=== PATIENT | male | born 1950 | race Caucasian/White ===

== ENCOUNTER 2016-08-17 05:28 | Observation (INO) | payer BC ==
--- NOTE | ~2016-08-17 | HP ---
History And Physical [id number] [facility]. [address] NAME: JOSE YARBROUGH JR : 54 STATUS : ADM Emilio PAT#: [id number] AGE: 65 ADM/REG DATE : 08/17/16 MR#: [id number] REPORT SERV DATE: 08/17/16 DICTATED BY: HEIDY FULTON DATE: 08/17/16 REPORT STATUS : Draft TRANSCRIBED BY: MODSundar DATE: 08/17/16 DATE OF ADMISSION: 08/17/2016 PIN INSERTER: Americo Lee MD CHIEF COMPLAINT: Chest pain and nausea with profound diaphoresis similar to previous. HISTORY OF PRESENT ILLNESS: A very pleasant 65-year-old white male with known history of CAD, multiple stents, most recently 06/2008 POBA for ISR to LAD, at which time, his stents to his RCA were widely patent. The patient states that on 08/16 while in bed for the night he became nauseated. He reports some nausea and vomiting. This morning around 0230, he awoke profoundly diaphoretic and nauseated and vomiting with some left-sided chest pain that did not radiate elsewhere. He reports associated nausea, diaphoresis, and dizziness. No shortness of breath or belching. At its most intense, he rated the chest pain an 8/10. At time of interview in the [facility], he rates it a 6/10. He states his symptoms were improved with nitroglycerin taken at home and provided by EMS, but his chest pain has returned. The patient denied reports a personal history of one heart attack. Denies history of stroke, DVT, or pulmonary embolus. The patient denies any recent fever or chills. No palpitations. No syncopal episodes. Denies PND or orthopnea. PAST MEDICAL HISTORY: 1. CAD. a. Multiple stents. b. 06/2008 POBA for ISR to LAD with patent stents to RCA at that time. 2. Dyslipidemia. 3. Denies hypertension and diabetes. 4. GERD. 5. Chronic back pain. 6. ED, most recent Cialis use, 08/16 a.m. 7. Former tobacco abuse. 8. Depression. SURGICAL HISTORY: 1. Hernia repair. 2. Vasectomy. 3. Right shoulder replacement. 4. Partial gastrectomy. SOCIAL HISTORY: He is with one child. 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 Quit smoking five years ago. Denies alcohol or illicits. FAMILY HISTORY: No embolic events reported in first-degree relatives at an early age. History And Physical [address] [place]. [address] NAME: JOSE YARBROUGH JR : 54 STATUS : ADM Emilio PAT#: [id number] AGE: 65 ADM/REG DATE : 08/17/16 MR#: [id number] REPORT SERV DATE: 08/17/16 DICTATED BY: HEIDY FULTON DATE: 08/17/16 REPORT STATUS : Draft TRANSCRIBED BY: MODSundar DATE: 08/17/16 REVIEW OF SYSTEMS: A 14-point review of systems performed, significant for HPI including ecchymosis noted on bilateral forearms. He states he has been moving tree limbs from a fallen tree on his garage the last few days. Otherwise, complete review of systems obtained and negative. ALLERGIES: NO KNOWN DRUG ALLERGIES. HOME MEDICINES: 1. Baclofen 20 mg three times daily p.r.n., half to one tab. 2. Wellbutrin 150 mg twice daily. 3. No longer takes Celebrex. 4. Plavix 75 mg daily. 5. CoQ10 200 mg daily. 6. Stool softener daily. 7. Lexapro 20 mg daily. 8. Zetia 10 mg daily. 9. Tavia p.r.n. 10.Mobic 15 mg daily. 11.Fish oil 1200 mg twice daily. 12.Simvastatin 40 mg nightly. 13.Cialis 5 mg daily, most recently 08/16 a.m. 14.Valtrex 500 mg daily. 15.Geodon 60 mg daily. PHYSICAL EXAMINATION: VITAL SIGNS: Bilateral blood pressures on arrival, right 155/84, left 153/86; pulse 68; respirations 18; temperature 97.7; O2 saturation 97% on room air; height 5 feet 11 inches; weight 178 pounds; BMI 24.8. GENERAL: Cooperative, in no apparent distress. HEENT: Pupils 2 mm, sclera nonicteric. Nares patent. Moist mucous membranes. No xanthelasma. NECK: Trachea midline, no thyromegaly. No JVD. No bruits. LYMPH: No cervical lymphadenopathy. No supraclavicular lymphadenopathy. RESPIRATORY: Unlabored respirations. Breath sounds clear bilaterally to posterior auscultation. No wheezes or rhonchi. CARDIOVASCULAR: Regular rate. No murmur, rub or gallop appreciated. Extremities without edema. Pulses 2+ bilaterally. Bilateral forearms ecchymotic. ABDOMEN: Soft, nontender, nondistended, normal bowel sounds auscultated throughout. No organomegaly. SKIN: Warm, dry extremities. No pallor, or cyanosis. PSYCHIATRIC: Appropriate affect. Alert, oriented x3. LABORATORY DATA: Troponin less than 0.02 twice, third pending. Potassium 4.0, BUN 12, creatinine 1.34, glucose 121, magnesium 1.8. WBC 7.8, hemoglobin 13.7, hematocrit 38.4, platelet count 272,000. EKG; sinus rhythm with inferior Q-waves. MPI 10/2009: Ramy stage 5, 13:20 minutes, 15 METS. No ischemia. History And Physical [address] [address] NAME: JOSE YARBROUGH JR : 54 STATUS : ADM Emilio PAT#: [id number] AGE: 65 ADM/REG DATE : 08/17/16 MR#: [id number] REPORT SERV DATE: 08/17/16 DICTATED BY: HEIDY FULTON DATE: 08/17/16 REPORT STATUS : Draft TRANSCRIBED BY: GABBY DATE: 08/17/16 PCI 06/2008 (Thel): POBA for ISR to LAD. Patent stents to RCA. EF 50%. ASSESSMENT AND PLAN: 1. Substernal chest pain similar to the previous. The patient has been observed in the CPOU. Two sets of troponin negative, third pending. Currently, chest pain 6/10. We will attempt to improve and/or manage chest pain with morphine. If third troponin negative, EKG remains stable, and chest pain managed appropriately, would sent for MPI today versus cath for chest pain unrelieved by morphine. Further recommendations forthcoming. 2. Coronary artery disease. Continue home medications. 3. Dyslipidemia. Continue statin. 4. Gastroesophageal reflux disease. Continue PPI. THAIS/GABBY CHRISTY Zafar, AMINTA-KATY / [id number] CC: CHRISTY Zafar, ELECTRIC FORK OPERATOR-Devyn Roland M.D.
[2016-08-17 04:30] LABS: BASOPHILS 1.4 %; BASOPHILS ABSOLUTE 0.11 10/3/uL (0.0-0.16); EOSINOPHILS 3.3 %; EOSINOPHILS ABSOLUTE 0.26 10/3/uL (0.0-0.53); ER CBC TAT 0 Hrs 07 Mins; HEMATOCRIT 38.4 % (40.0-51.0); HEMOGLOBIN 13.7 g/dL (13.6-17.8); IMMATURE GRANULOCYTES 0.4 %; IMMATURE GRANULOCYTES ABSOLUTE 0.03 10/3/uL (0.0-0.11); LYMPHOCYTES 24.3 %; MANUAL DIFF NO %; MEAN CORPUS HGB CONC 35.7 g/dL (32.0-36.0); MEAN CORPUSCULAR HEMOGLOB 32.5 pg (26.0-34.0); MEAN CORPUSCULAR VOLUME 91.2 fL (80-100); MEAN PLATELET VOLUME 8.5 fL (9.2-13.0); MONOCYTES 7.3 %; MONOCYTES ABSOLUTE 0.57 10/3/uL (0.21-1.20); NEUTROPHILS 63.3 %; NEUTROPHILS ABSOLUTE 4.96 10/3/uL (2.02-8.40); PLATELET COUNT 272 10/3/uL (150-400); RBC DISTRIBUTION WIDTH 13.5 % (12.0-16.0); RED CELL COUNT 4.21 10/6/uL (4.7-6.1); WHITE BLOOD CELLS 7.8 10/3/uL (4.5-10.5)
[2016-08-17 04:47] LABS: PROTIME (NOT ORD) 12.6 SEC (12.0-14.5)
[2016-08-17 04:50] LABS: BUN (BLOOD UREA NITROGEN) 12 MG/DL (6-23); CALCIUM, SERUM 9.1 MG/DL (8.5-10.4); CHEST PAIN PROFILE TAT 0 Hrs 27 Mins; CHLORIDE, SERUM 94 MMOL/L (96-112); CO2 (CARBON DIOXIDE) 29 MMOL/L (24-34); CREATININE 1.34 MG/DL (0.70-1.30); GFR AFRICAN AMERICAN 65 ML/MIN (>=60); GFR NON AFRICAN AMERICAN 56 ML/MIN (>=60); GLUCOSE, SERUM 121 MG/DL (60-99); PARTIAL THROMBO TIME 21.3 SEC (22.5-37.2); SODIUM, SERUM 131 MMOL/L (135-148); TROPONIN I <0.02 NG/ML (<0.05)
[~2016-08-17 05:28] MED LIST: ALTACE10 MG PO; ASCRIPTIN PO; FISH OIL1200 MG PO; FLEX PO; FLEXERIL PO; GEODON20 PO; GEODON60 MG PO; LEXAPRO20 PO; LIPITOR20 PO; LOPRESS HCT1 TAB PO; LYRICA75 PO; NEXIUM40 PO; NITROQUICK0.4 MG SL; OXYCON10 PO; PCET PO; PLAVIX PO; REMERON PO; VYTORIN 10/40 T1 TAB PO; WELLSR150 PO; WELLXL300 PO; ZETIA PO; ZOFRAN4 PO
[2016-08-17] MEDS ORDERED: FISH OIL1200 MG PO (05:30)
[2016-08-17] MEDS ORDERED: BACLOFEN20 MG PO (05:31)
[2016-08-17] MEDS ORDERED: ALLEGRA180 PO (05:31)
[2016-08-17] MEDS ORDERED: GEODON60 MG PO (05:32)
[2016-08-17] MEDS ORDERED: VALTREX5 PO (05:32)
[2016-08-17] MEDS ORDERED: PLAVIX PO (05:33)
[2016-08-17] MEDS ORDERED: LEXAPRO20 PO (05:33)
[2016-08-17] MEDS ORDERED: STOOL SOFTEN240 MG PO (05:33)
[2016-08-17] MEDS ORDERED: ZETIA PO (05:34)
[2016-08-17] MEDS ORDERED: CO Q-10200 MG PO (05:34)
[2016-08-17] MEDS ORDERED: CELEBREX2 PO (05:34)
[2016-08-17] MEDS ORDERED: ZOCOR40 PO (05:35)
[2016-08-17] MEDS ORDERED: WELLSR150 PO (05:35)
[2016-08-17] MEDS ORDERED: MOBIC15 MG PO (05:36)
[2016-08-17] MEDS ORDERED: CIALIS5 MG PO (05:36)
[2016-08-17] MEDS ORDERED: COREG3 PO (16:13)
[2016-08-17] MEDS ORDERED: ASAB PO (16:13)
[2016-09-25] MEDS ORDERED: VYTORIN 10/40 T1 TAB PO (10:35)
[2016-09-25] MEDS ORDERED: NORV25 PO (10:35)
[2016-09-25] MEDS ORDERED: WELLSR150 PO (10:36)
[2016-09-25] MEDS ORDERED: CIALIS5 MG PO (10:46)
[2016-09-25] MEDS ORDERED: GEODON60 MG PO (10:49)
[2016-09-25] MEDS ORDERED: ZETIA PO (10:49)
[2016-10-16] MEDS ORDERED: VALTREX5 PO (11:39)
[2016-10-21] MEDS ORDERED: LIPITOR40 PO (12:20)
[2016-10-21] MEDS ORDERED: NORCO1 TA1 PO (12:21)
[2016-10-21] MEDS ORDERED: FERROUS SULF325 M1 PO (12:21)
== END 2016-08-17 16:52 | disposition home or self-care (01) ==
LOC: ER 05:28 → CDU1 05:46
PROVIDERS: Emergency Medicine
DX: R07.2 Precordial pain (principal); I10 Essential (primary) hypertension; K21.9 Gastro-esophageal reflux disease without esophagitis; E78.2 Mixed hyperlipidemia; R94.31 Abnormal electrocardiogram [ECG] [EKG]; F32.9 Major depressive disorder, single episode, unspecified; I25.2 Old myocardial infarction; G89.29 Other chronic pain; I25.10 Atherosclerotic heart disease of native coronary artery without angina pectoris; Z87.891 Personal history of nicotine dependence; Z79.82 Long term (current) use of aspirin; Z79.899 Other long term (current) drug therapy; Z95.5 Presence of coronary angioplasty implant and graft; Z98.52 Vasectomy status; Z98.890 Other specified postprocedural states; Z90.89 Acquired absence of other organs
CPT/HCPCS: 71010; 78452; 80048; 83735; 84484; 85025; 85610; 85730; 93005; 93017; 93308; 96374; 96375; 99285; A9270-GY; A9502; G0378; J2405

== ENCOUNTER 2016-08-25 08:57 | Day surgery (SDC) | payer BC ==
--- NOTE | ~2016-08-25 | OP ---
Record Of Operation [facility] [address] [place]. [address] NAME: JOSE YARBROUGH JR : 54 STATUS : [facility]#: [id number] AGE: 65 ADM/REG DATE : 08/25/16 MR#: [id number] REPORT SERV DATE: 08/28/16 DICTATED BY: ASHISH RUIZ DATE: 08/28/16 REPORT STATUS : Draft TRANSCRIBED BY: MODL DATE: 08/28/16 DATE OF PROCEDURE: 08/25/2016 PREOPERATIVE DIAGNOSIS: Chronic cholecystitis with cholelithiasis. POSTOPERATIVE DIAGNOSIS: Chronic cholecystitis with cholelithiasis. PROCEDURE: Laparoscopic cholecystectomy (four-site). DESCRIPTION OF OPERATIVE PROCEDURE: The patient was brought to the operating suite, placed in supine position, underwent satisfactory general endotracheal anesthesia without incident. The skin of the abdomen was scrubbed, prepped, and draped in usual sterile fashion. 0.5% Marcaine with epinephrine was utilized as supplemental local anesthesia. Initially, an infraumbilical incision was performed dissecting through the skin and subcutaneous tissue. The umbilicus was grasped with a Varun clamp and elevated, and a disposable Veress insufflation needle was inserted through the umbilical fascia. Intraperitoneal tip location was ascertained using the saline hanging drop method following which CO2 was insufflated for pressures of 15 mmHg throughout the case. After adequate insufflation pressure achieved, Veress needle was removed, and disposable bladed 11 mm trocar placed through the umbilical fascia into the peritoneal cavity. Rigid forward viewing 10 mm laparoscope was inserted. No evidence of injury was noted to the intraabdominal parietes from initial insufflation or puncture. Eventually, three additional trocars were placed under direct visualization in the upper abdomen, and then the fundus and body gallbladder grasped and elevated exposing the infundibular region. Dissection of triangle of Calot was successful in identifying and skeletonizing the cystic duct and cystic duct and common duct junction as well as cystic artery. After the critical view was obtained, both of these structures were isolated, skeletonized, and were controlled with multiple applications of Weck 5 mm polymer clip system and divided. Using spatula cautery dissection, the peritoneal attachments to the gallbladder liver were divided, and the gallbladder was removed from subhepatic space. Hemostasis was assured. Next, the camera was switched to the 5 mm epigastric port. The gallbladder placed inside our Endo retrieval pouch and removed under direct visualization. It was opened, aspirated free of bile, and stones were removed, and the gallbladder was removed intact. CO2 was allowed to egress from peritoneal cavity. No muscular bleeding was noted. The umbilicus was closed with [id number] suture of 0 Vicryl, subcutaneous tissue closed with interrupted 4-0 Vicryl, running subcuticular stitch 4-0 Vicryl for the skin. Dermabond skin adhesive placed. Record Of Operation [address] [place]. [address] NAME: JOSE YARBROUGH JR : 54 STATUS : [facility] PAT#: [id number] AGE: 65 ADM/REG DATE : 08/25/16 MR#: [id number] REPORT SERV DATE: 08/28/16 DICTATED BY: ASHISH RUIZ DATE: 08/28/16 REPORT STATUS : Draft TRANSCRIBED BY: GABBY DATE: 08/28/16 The patient tolerated the procedure well and was returned to PACU in stable condition. At the termination of the procedure, sponge, needle, lap, and instrument counts were correct x3. ESTIMATED BLOOD LOSS: Less than 10-15 mL. MARIETTA/GABBY Ashish Ruiz M.D. / [id number] CC: Devyn Rawls M.D.
[~2016-08-25 08:57] MED LIST changes: +ALLEGRA180 PO; +ASAB PO; +BACLOFEN20 MG PO; +CELEBREX2 PO; +CIALIS5 MG PO; +CO Q-10200 MG PO; +COREG3 PO; +MOBIC15 MG PO; +STOOL SOFTEN240 MG PO; +VALTREX5 PO; +ZOCOR40 PO
[2016-08-25 09:48] LABS: A/G RATIO 1.1 (0.7-1.9); ALBUMIN 3.7 G/DL (3.5-5.0); ALKALINE PHOSPHATASE 63 U/L (45-117); BUN (BLOOD UREA NITROGEN) 8 MG/DL (6-23); CALCIUM, SERUM 8.8 MG/DL (8.5-10.4); CHLORIDE, SERUM 101 MMOL/L (96-112); CO2 (CARBON DIOXIDE) 30 MMOL/L (24-34); CREATININE 1.39 MG/DL (0.70-1.30); GFR AFRICAN AMERICAN 62 ML/MIN (>=60); GFR NON AFRICAN AMERICAN 54 ML/MIN (>=60); GLOBULIN 3.4 G/DL (2.5-4.1); GLUCOSE, SERUM 90 MG/DL (60-99); POTASSIUM, SERUM 5.2 MMOL/L (3.5-5.3); SGOT(AST) 12 U/L (5-40); SGPT(ALT) 23 U/L (5-65); SODIUM, SERUM 136 MMOL/L (135-148); TOTAL BILIRUBIN 0.9 MG/DL (0-1.2); TOTAL PROTEIN 7.1 G/DL (6.0-8.5)
[2016-09-25] MEDS ORDERED: NORV25 PO (10:35)
[2016-09-25] MEDS ORDERED: VYTORIN 10/40 T1 TAB PO (10:35)
[2016-09-25] MEDS ORDERED: WELLSR150 PO (10:36)
[2016-09-25] MEDS ORDERED: CIALIS5 MG PO (10:46)
[2016-09-25] MEDS ORDERED: GEODON60 MG PO (10:49)
[2016-09-25] MEDS ORDERED: ZETIA PO (10:49)
[2016-10-16] MEDS ORDERED: VALTREX5 PO (11:39)
[2016-10-21] MEDS ORDERED: LIPITOR40 PO (12:20)
[2016-10-21] MEDS ORDERED: NORCO1 TA1 PO (12:21)
[2016-10-21] MEDS ORDERED: FERROUS SULF325 M1 PO (12:21)
== END 2016-08-25 15:27 | disposition home or self-care (01) ==
LOC: SDC 08:57
PROVIDERS: Specialist
PROC: 0FT44ZZ Resection of Gallbladder, Percutaneous Endoscopic Approach (ICD-10-PCS; principal; 2016-08-25 10:00)
DX: K80.10 Calculus of gallbladder with chronic cholecystitis without obstruction (principal); I25.10 Atherosclerotic heart disease of native coronary artery without angina pectoris; F32.9 Major depressive disorder, single episode, unspecified; K21.9 Gastro-esophageal reflux disease without esophagitis; I25.2 Old myocardial infarction; I25.5 Ischemic cardiomyopathy; Z90.49 Acquired absence of other specified parts of digestive tract; Z96.611 Presence of right artificial shoulder joint; Z98.52 Vasectomy status; Z87.891 Personal history of nicotine dependence; Z79.899 Other long term (current) drug therapy; Z90.89 Acquired absence of other organs; Z98.890 Other specified postprocedural states
CPT/HCPCS: 80053; 83690; 88304; J0330; J0690; J2250; J2405; J2710; J3010